=== PATIENT | female | born 1965 | race Caucasian/White ===

== ENCOUNTER 2025-06-19 06:24 | Day surgery (SDC) | payer BC, SELFPAY ==
[2025-06-19] VITALS (12 sets, daily range): BP systolic 143–169; BP diastolic 82–94; PULSE 56–67; RESP 16–18; TEMP 36.4; O2SAT 94–99; BMI 25.8
[2025-06-19] MEDS: LIDOCAINE 1% MDV INJECTION (07:05)
[2025-06-19] MEDS: ETHYL CHLORIDE 1 APPLICATION 1 APPLIC TOPICAL (07:05)
[2025-06-19] MEDS: BUPIVACAINE 0.5% 30 ML INJECTION (07:05)
--- NOTE | 2025-06-19 07:09 | SUR.PREOP ---
SAME DAY SURGERY LOCAL INJECTION SITE VERIFICATION WAS PERFORMED BY SURGEON (Dr. Boggs) AND PATIENT PRIOR TO LOCAL ANESTHETIC BEING INJECTED TO OPERATIVE SITE.
[2025-06-19] MEDS: LIDOCAINE 1 % PF 30 ML 4 ML INJECTION (07:33)
--- NOTE | 2025-06-19 07:46 | PM.ORPRC ---
Procedure Note Date of procedure: 06/19/25 Procedure: PREOPERATIVE DIAGNOSIS: 1. Left dorsal thumb benign cyst POSTOPERATIVE DIAGNOSIS: 1. Left dorsal thumb mass, suspect benign PROCEDURE: 1. Left dorsal thumb mass open excision, suspect benign SURGEON: Aram Rowland MD. OUTSOLE PARAFFINER: AJ Swann - Of note, an human resources assistant was critical for this case to aid in patient positioning, tissue retraction, limb manipulation/positioning, patient safety, & closure. ANESTHESIA: Local anesthetic (50:50 mixture of 2% lidocaine plain and 0.5% marcaine plain) EBL: 2 mL IMPLANTS: None TOURNIQUET: Digital tourni-cot 10 minutes COMPLICATIONS: None evident SPECIMEN: Left dorsal thumb mass overlying extensor tendon near the IP joint sent for permanent pathology. INDICATIONS: The patient is a pleasant 59-year-old female who has experienced left dorsal thumb mass development/growth for the last 1 month. Spontaneous development. Does not recall any inciting event. As it indeed has been slowly growing, and somewhat painful, nonoperative management was unsuccessful and therefore surgery was indicated for open mass excision. DESCRIPTION OF PROCEDURE: Following a thorough discussion of risks, benefits, and alternatives consent was obtained and the operative extremity was marked. The patient was brought to the operating room and placed supine on the operating table. No antibiotics were administered as this was planned to be a local case only. Proper time-out was performed identifying proper patient, site, and procedure. The operative extremity was prepped and draped in the appropriate sterile fashion using ChloraPrep. The limb was exsanguinated and the tourni-cot engaged. A transverse incision was made on the dorsum of the left thumb centered over the IP joint. Sharp incision through the skin and blunt dissection through subcutaneous tissue allowed us to identify the extensor tendon and protect this throughout the case. Crossing venous structures were cauterized with the bipolar cautery. The mass was encountered to be just slightly radial to the dorsal midline an appear to be growing from the extensor tendon itself. This was circumferentially mobilized from the surrounding tissues and released from the extensor tendon. The tendon was inspected and otherwise found to be healthy and robust. We were able to access they deep surface of the tendon which otherwise did not appear to have any stalk or tracking to this growth. Indeed what was initially thought to be a cystic structure, it appeared to be more of a mass/tumor from the extensor tendon sheath. At this stage, the tourni-cot was released and hemostasis achieved. Closure was performed with 4-O nylon. Soft dressings were applied, and the patient was awoken/transferred to the recovery room in stable condition. PLAN: 1. Encourage elevation of the operative extremity. 2. Range of motion of the operative extremity/digits as tolerated. 3. Ibuprofen, acetaminophen and/or oxycodone as needed for pain. 4. Follow up with PA visit in 12-16 days for wound check and suture removal.
[2025-06-19] MEDS: NEOMYCIN/BACITRACIN/POLYMYXIN B 1 APPLIC TOPICAL (07:52)
== END 2025-06-19 08:18 | disposition home or self-care (01) ==
LOC: OR 06:24
PROVIDERS: PCP Family Medicine; Visit Provider Orthopaedic Surgery Sports Medicine
PROC: (CPT 26160; principal; 2025-06-19 07:30)
DX: M67.442 Ganglion, left hand (principal)
CPT/HCPCS: 26160; J2003; J0665